=== PATIENT | female | born 1990 | race African-American/Black ===

== ENCOUNTER 2018-02-16 08:30 | Emergency (ER) | payer OTHER, SELFPAY | END 2018-02-16 08:53 | disposition home or self-care (01) | LOC: ERS 08:30 | DX: J02.0 Streptococcal pharyngitis (principal); F32.9 Major depressive disorder, single episode, unspecified; F17.210 Nicotine dependence, cigarettes, uncomplicated | CPT/HCPCS: 99283 ==

== ENCOUNTER 2018-08-28 05:55 | Emergency (ER) | payer SELFPAY | END 2018-08-28 06:18 | disposition home or self-care (01) | LOC: ERS 05:55 | DX: S46.811A Strain of other muscles, fascia and tendons at shoulder and upper arm level, right arm, initial encounter (principal); H66.91 Otitis media, unspecified, right ear; F32.9 Major depressive disorder, single episode, unspecified; F17.210 Nicotine dependence, cigarettes, uncomplicated; X58.XXXA Exposure to other specified factors, initial encounter | CPT/HCPCS: 99283 ==

== ENCOUNTER 2019-01-28 05:12 | Emergency (ER) | payer SELFPAY ==
--- NOTE | 2019-01-28 08:45 | RAD ---
CHEST TWO VIEWS: History: History of flu-like symptoms, cough. Comparison: None. FINDINGS: Lungs are clear. Heart size is normal. No acute osseous abnormality is evident. IMPRESSION: No acute cardiopulmonary abnormality. POS: BH
== END 2019-01-28 06:50 | disposition home or self-care (01) ==
LOC: ERS 05:12
DX: J18.9 Pneumonia, unspecified organism (principal); F17.210 Nicotine dependence, cigarettes, uncomplicated; F32.9 Major depressive disorder, single episode, unspecified
CPT/HCPCS: 71046

== ENCOUNTER 2019-02-15 12:00 | Emergency (ER) | payer SELFPAY ==
--- NOTE | 2019-02-15 12:26 | RAD ---
RADIOGRAPH CHEST 2 VIEWS: DATE: 02/15/2019 HISTORY: 28-year-old female with cough, chest congestion, and chest pain. History of treated pneumonia. FINDINGS: The lungs are clear. The cardiomediastinal silhouette and hilar shadows appear normal. There is no pl eural effusion or pneumothorax. No osseous abnormality is identified. IMPRESSION: Normal
[2019-02-15] MEDS ORDERED: Albuterol Sulfate 2.5 mg/3 ml Neb ONE (12:41)
[2019-02-15] MEDS ORDERED: predniSONE 20 MG TAB ONE (12:42)
== END 2019-02-15 15:39 | disposition home or self-care (01) ==
LOC: ERS 12:00
DX: J20.9 Acute bronchitis, unspecified (principal); F32.9 Major depressive disorder, single episode, unspecified; F17.210 Nicotine dependence, cigarettes, uncomplicated; Z79.51 Long term (current) use of inhaled steroids
CPT/HCPCS: 71046; 94644; J7512; J7611; J7620

== ENCOUNTER 2020-08-24 12:48 | Emergency (ER) | payer SELFPAY ==
[2020-08-24 21:31] LABS: SARS-CoV-2 MS2 Positive; SARS-CoV-2 N Gene Positive; SARS-CoV-2 S Gene Positive; SARS-CoV-2 by NAA DETECTED (NotDetected); SARS-CoV-2 orf1ab Positive
== END 2020-08-24 13:20 | disposition home or self-care (01) ==
LOC: ERS 12:48
DX: U07.1 COVID-19 (principal); F32.9 Major depressive disorder, single episode, unspecified; F17.210 Nicotine dependence, cigarettes, uncomplicated
CPT/HCPCS: 87635; 99283; U0003

== ENCOUNTER 2020-11-08 03:37 | Observation (INO) | payer SELFPAY ==
[2020-11-08 04:03] LABS: #Basophils 0.2 thou/uL (0.0-0.2); #Eosinphils 0.2 thou/uL (0.0-0.7); #Lymphocytes 2.4 thou/uL (1.20-3.40); #Monocytes 0.6 thou/uL (0.11-0.59); #Neutrophils 6.5 thou/uL (1.40-6.50); %Basophils 1.6 % (0.0-1.0); %Eosinophils 1.5 % (0.0-10.0); %Lymphocytes 24.2 % (21.0-51.0); %Neutrophils 66.7 % (42.0-75.0); Hemoglobin 12.5 g/dL (12.0-16.0); Mean Corpuscular HGB CONC 31.8 g/dL (32.0-36.0); Mean Corpuscular Hemoglobin 25.1 pg (27.0-31.0); Mean Platelet Volume 8.7 fL (7.4-10.4); Platelet Count 284 thou/uL (130-400); RBC Distribution Width 13.5 % (11.5-14.5); Red Blood Cell (RBC) Count 4.97 mill/uL (4.20-5.40); White Blood Cell (WBC) Count 9.8 thou/uL (4.8-10.8)
[2020-11-08 04:25] LABS: ALT (SGPT) 27 U/L (8-55); AST (SGOT) 18 U/L (5-34); Albumin 4.2 g/dL (3.5-5.0); Alkaline Phosphatase 77 U/L (40-110); Anion Gap 14 mmol/L (10-20); BUN (Urea Nitrogen) 14 mg/dL (7.0-18.7); Bilirubin, Total 0.3 mg/dL (0.2-1.2); Calc. Creatinine Clearance 0 mL/min (70-130); Carbon Dioxide 23 mmol/L (22-29); Chloride 107 mmol/L (98-107); Globulin 3.1 g/dL (2.4-3.5); Glucose 129 mg/dL (70-105); Lipase 11 U/L (8-78); Potassium 3.3 mmol/L (3.5-5.1); Protein, Total 7.3 g/dL (6.0-8.3); Sodium 141 mmol/L (136-145)
[2020-11-08] MEDS ORDERED: Ketorolac Tromethamine 30 MG/ML VIAL ONE (04:27)
[2020-11-08] MEDS ORDERED: Ondansetron PF 4 MG/2 ML Vial ONE ×2 (04:27→04:54)
[2020-11-08 04:55] LABS: Pregnancy Test - Urine (BHCG) Negative (Negative)
[2020-11-08 04:56] LABS: Pregu Control Background? CLEAR/WHITE (CLR/WHITE); Pregu Control Bar Appear? YES (CONTROL BAR)
[2020-11-08 04:57] LABS: Specific Gravity 1.024 (1.002-1.036)
[2020-11-08 05:13] LABS: Bilirubin Negative (Negative); Blood, Urine Trace (Negative); Clarity Clear (Clear); Glucose, Urine (Dipstick) Normal (Negative); Ketone, Urine 20 mg/dL (Negative); Leukocyte 25 Leu/uL (Negative); Nitrite Negative (Negative); Protein, Urine (Dipstick) 30 mg/dL (Neg-Trace); Specific Gravity, Urine 1.026 (1.002-1.036); Urobilinogen Normal mg/dL (Less than 2); WBC/HPF 0-3 HPF (0-3); pH, Urine 8.5 (5.0-9.0)
[2020-11-08] MEDS ORDERED: Metoclopramide HCl 10 MG/2 ML VIAL ONE (05:16)
[2020-11-08 05:18] LABS: Bacteria/HPF 1+ HPF (None Seen)
[2020-11-08] MEDS ORDERED: Haloperidol Lactate 5 MG/ML VIAL SLOW IVP SCH (05:30)
[2020-11-08] MEDS ORDERED: Lidocaine Viscous Sol 2% 15 ml UD Cup ONE (06:07)
[2020-11-08] MEDS ORDERED: Mag-Al 1200 mg/1200 mg/30 ML UDCUP ONE (06:07)
[2020-11-08] MEDS ORDERED: Promethazine HCl 25 MG/ML VIAL ONE (06:37)
[2020-11-08 07:24] LABS: Anion Gap 15 mmol/L (10-20); BUN (Urea Nitrogen) 12 mg/dL (7.0-18.7); Calc. Creatinine Clearance 0 mL/min (70-130); Calcium 8.5 mg/dL (7.8-10.44); Carbon Dioxide 22 mmol/L (22-29); Chloride 108 mmol/L (98-107); Glucose 123 mg/dL (70-105); Potassium 3.5 mmol/L (3.5-5.1); Sodium 141 mmol/L (136-145)
[2020-11-08] MEDS ORDERED: cefTRIAXone\\ROCEPHIN 1 GM VIAL ONE (07:31)
[2020-11-08] MEDS ORDERED: Ondansetron ODT 4 MG TAB PO PRN (07:43)
[2020-11-08] MEDS ORDERED: Acetaminophen 325 MG TAB PO PRN (07:43)
[2020-11-08] MEDS ORDERED: Metoclopramide HCl 10 MG/2 ML VIAL IVP PRN (07:45)
--- NOTE | 2020-11-08 07:59 | PDOC.HHP ---
Hospitalist JOANNA Nausea vomitting History of Present Illness: Ms. Louie is a 30-year-old female with past medical history of tobacco use, anxiety and depression, hypertension, who presents emergency room for intractable nausea and vomiting. Patient reports that in the middle the night she awoke with extreme nausea and vomiting. Refers she is vomited and uncountable number of times but greater than 10 since this morning. She is bringing up yellow bile. Vomit is nonbloody. No diarrhea, melena or hematochezia. She denies abdominal pain but does feel sore from retching. Denies pelvic pain, reports no changes in her menstrual cycle. Is on the Depo- Provera shot for contraception. She is unable to tolerate anything p.o. she reports only occasional alcohol use less than once per month and denies marijuana use but does endorse tobacco use. No history of diabetes or pancreatitis. In emergency room initial vital signs 124/86, 61, 22, 99% on room air, 97.4. Lipase 11, BUN/CR 14/1.05, sodium 141, potassium 3.3, glucose 129. H/H 12.5/39.3, WBC 9.8, platelets 284. Patient received multiple antinausea medications in the emergency room including Haldol, promethazine, GI cocktail, metoclopramide, Zofran as well as 1 L normal saline. Her UA was leukocyte esterase positive, but did have contaminants. She did receive 1 dose of ceftriaxone. Patient currently denies any urinary symptoms. Allergies/Adverse Reactions: Allergy/AdvReac Type Severity Reaction Status Date / Time tramadol Allergy Verified 12/21/19 17:41 Home Medications: Medication Instructions Recorded Confirmed Type Ibuprofen [Advil] 2 tab PO PRN PRN 04/30/17 04/30/17 History Amlodipine [Norvasc] 5 mg PO BID #60 tab 05/02/17 Rx Past History: PMHx: Hypertension Anxiety and depression Tobacco use PSHx: C-sections FHx: Denies family history of diabetes, cancer or heart disease Social: Endorses occasional alcohol use less than once per month, tobacco use less than half pack per day, no drug use. Hospitalist JOANNA ROS Constitutional: reports: malaise. denies: fever, chills, sweats, weakness, other Eyes: denies: pain, vision change, conjunctivae inflammation, eyelid inflammation, redness, other ENT: denies: ear pain, ear discharge, nose pain, nose discharge, nose congestion, mouth pain, mouth swelling, throat pain, throat swelling, other Respiratory: denies: cough, dry, shortness of breath, hemoptysis, SOB with excertion, pleuritic pain, sputum, wheezing, other Cardiovascular: denies: chest pain, palpitations, orthopnea, paroxysmal noc. dyspnea, edema, light headedness, other Gastrointestinal: reports: nausea, vomiting. denies: abdominal pain, diarrhea, constipation, melena, hematochezia, other Genitourinary: denies: dysuria, frequency, incontinence, hematuria, retention, other Musculoskeletal: denies: neck pain, shoulder pain, arm pain, back pain, hand pain, leg pain, foot pain, other Skin: denies: rash, lesions, you, bruising, other Neurological: denies: weakness, numbness, incoordination, change in speech, confusion, seizures, other Hospitalist Exam General Appearance: NAD, awake alert Eye: PERRL, anicteric sclera ENT: normocephalic atraumatic, no oropharyngeal lesions, moist mucosa Neck: supple, symmetric, no JVD, no thyromegaly, no lymphadenopathy, no carotid bruit Heart: RRR, no murmur, no gallops, no rubs, normal peripheral pulses Respiratory: CTAB, no wheezes, no rales, no ronchi, normal chest expansion, no tachypnea, normal percussion Gastrointestinal: soft, non-tender, non-distended, normal bowel sounds, no palpable masses, no hepatomegaly, no splenomegaly, no bruit Extremities: no cyanosis, no clubbing, no edema Skin: normal turgor, no lesions, no rashes Neurological: cranial nerve grossly intact, normal sensation to touch, no weakness, no focal deficits, no new deficit Musculoskeletal: normal tone, normal strength, no muscle wasting Psychiatric: normal affect, normal behavior, A&O x 3 Hospitalist Results Result Diagrams: 11/08/20 03:55 11/08/20 06:59 Lab results: Laboratory Last Values WBC 9.8 thou/uL (4.8-10.8) 11/08/20 03:55 RBC 4.97 mill/uL (4.20-5.40) 11/08/20 03:55 Hgb 12.5 g/dL (12.0-16.0) 11/08/20 03:55 Hct 39.3 % (36.0-47.0) 11/08/20 03:55 MCV 79.0 fL (78.0-98.0) 11/08/20 03:55 MCH 25.1 pg (27.0-31.0) L 11/08/20 03:55 MCHC 31.8 g/dL (32.0-36.0) L 11/08/20 03:55 RDW 13.5 % (11.5-14.5) 11/08/20 03:55 Plt Count 284 thou/uL (130-400) 11/08/20 03:55 MPV 8.7 fL (7.4-10.4) 11/08/20 03:55 Neutrophils % 66.7 % (42.0-75.0) 11/08/20 03:55 Lymphocytes % 24.2 % (21.0-51.0) 11/08/20 03:55 Monocytes % 6.0 % (0.0-10.0) 11/08/20 03:55 Eosinophils % 1.5 % (0.0-10.0) 11/08/20 03:55 Basophils % 1.6 % (0.0-1.0) H 11/08/20 03:55 Neutrophils # 6.5 thou/uL (1.40-6.50) 11/08/20 03:55 Lymphocytes # 2.4 thou/uL (1.20-3.40) 11/08/20 03:55 Monocytes # 0.6 thou/uL (0.11-0.59) H 11/08/20 03:55 Eosinophils # 0.2 thou/uL (0.0-0.7) 11/08/20 03:55 Basophils # 0.2 thou/uL (0.0-0.2) 11/08/20 03:55 Sodium 141 mmol/L (136-145) 11/08/20 06:59 Potassium 3.5 mmol/L (3.5-5.1) 11/08/20 06:59 Chloride 108 mmol/L (98-107) H 11/08/20 06:59 Carbon Dioxide 22 mmol/L (22-29) 11/08/20 06:59 Anion Gap 15 mmol/L (10-20) 11/08/20 06:59 BUN 12 mg/dL (7.0-18.7) 11/08/20 06:59 Creatinine 0.85 mg/dL (0.6-1.1) 11/08/20 06:59 Estimated GFR (MDRD) Greater than 90 11/08/20 06:59 Glucose 123 mg/dL (70-105) H 11/08/20 06:59 Calcium 8.5 mg/dL (7.8-10.44) 11/08/20 06:59 Total Bilirubin 0.3 mg/dL (0.2-1.2) 11/08/20 03:55 AST 18 U/L (5-34) 11/08/20 03:55 ALT 27 U/L (8-55) 11/08/20 03:55 Alkaline Phosphatase 77 U/L (40-110) 11/08/20 03:55 Serum Total Protein 7.3 g/dL (6.0-8.3) 11/08/20 03:55 Albumin 4.2 g/dL (3.5-5.0) 11/08/20 03:55 Globulin 3.1 g/dL (2.4-3.5) 11/08/20 03:55 Albumin/Globulin Ratio 1.4 g/dL (1.2-2.2) 11/08/20 03:55 Lipase 11 U/L (8-78) 11/08/20 03:55 Urine Color Light-Yellow (Yellow) 11/08/20 04:37 Urine Clarity Clear (Clear) 11/08/20 04:37 Urine pH 8.5 (5.0-9.0) 11/08/20 04:37 Ur Specific [place] 1.024 (1.002-1.036) 11/08/20 04:37 Ur Specific [place] 1.026 (1.002-1.036) 11/08/20 04:37 Urine Protein 30 mg/dL (Neg-Trace) A 11/08/20 04:37 Urine Glucose (UA) Normal mg/dL (Negative) 11/08/20 04:37 Urine Ketones 20 mg/dL (Negative) A 11/08/20 04:37 Urine Blood Trace (Negative) A 11/08/20 04:37 Urine Nitrite Negative (Negative) 11/08/20 04:37 Urine Bilirubin Negative (Negative) 11/08/20 04:37 Urine Urobilinogen Normal mg/dL (Less than 2) 11/08/20 04:37 Ur Leukocyte Esterase 25 Jaida/uL (Negative) A 11/08/20 04:37 Urine RBC 7-10 HPF (0-3) A 11/08/20 04:37 Urine WBC 0-3 HPF (0-3) 11/08/20 04:37 Ur Squamous Epith Cells 4-6 HPF (0-3) A 11/08/20 04:37 Urine Bacteria 1+ HPF (None Seen) A 11/08/20 04:37 Urine Test Negative (Negative) 11/08/20 04:37 Hospitalist H&P A/P Plan: Intractable nausea and vomiting 30-year-old female with minimal past medical history presents for intractable nausea and vomiting which started overnight. Patient is unable to tolerate anything p.o and has nonbloody, but bilious vomiting. No diarrhea melena or hematochezia. AST/ALT 18/27, alk phos 77. Lipase 11. Beta hCG negative. Patient without abdominal pain. Abdominal exam nonperitoneal soft nontender. Basic laboratory studies mostly normal aside from a low potassium 3.3. Patient received multiple antiemetics in the emergency room including Haldol, promethazine, metoclopramide and Zofran. Patient denies alcohol or marijuana use. No personal or family history of diabetes. Suspect likely secondary to gastroenteritis. Will admit patient for observation and see if she is able to tolerate p.o. Plan IV fluids Clear liquids advance diet as tolerated IV antiemetics, Zofran, metoclopramide Serial abdominal exams Hypokalemia Potassium 3.3. Secondary to GI losses. Will replete and continue to monitor. Plan Replete and continue to monitor Hypertension Patient with history of hypertension, reports she used to take medication for this but no longer does. Records show patient was formally on amlodipine. Patient mildly hypertensive in emergency room. If patient remains hypertensive will restart medication. Positive urine analysis UA in emergency room positive for leukocyte esterase, few bacteria, with squamous epithelial cells. Sample likely contaminated. Patient does not have any urinary symptoms. Patient did receive dose of ceftriaxone in the emergency room, however I will hold antibiotics and not treat asymptomatic bacteriuria. We will continue antibiotics if patient Steve any symptoms. Anxiety and depression History of anxiety and depression on paroxetine. We will continue home dose of p.o. patient is able to tolerate p.o. DVT prophylaxisSCDs Full code Case discussed with attending physician, Dr. Garcia.
[2020-11-08] MEDS ORDERED: Promethazine HCl 25 MG/ML VIAL SLOW IVP PRN (08:01)
[2020-11-08 10:10] VITALS: BMI 31.5
[2020-11-08] MEDS: Pantoprazole 40 MG VIAL IVP SCH ×2 (11:38→19:49)
[2020-11-08 12:33] LABS: Hemoglobin A1c 5.2 % (4.0-6.0)
[2020-11-08] MEDS: Potassium Chloride 30 MEQ in Sodium Chloride 0.9% 1,000 ML IV SCH ×2 (12:59→22:45)
[2020-11-08] MEDS: Ondansetron PF 4 MG/2 ML Vial IVP PRN (13:01)
[2020-11-08 16:22] LABS: Amphetamine Not Detected (NotDetected); Barbiturates Screen Not Detected (NotDetected); Benzodiazepine Screen Detected (NotDetected); Cocaine Metabolite Screen Not Detected (NotDetected); Medtox Control Line Valid? VALID (VALID); Medtox Reader # READER 4; Methadone Not Detected (NotDetected); Methamphetamine Not Detected (NotDetected); Opiate Screen Not Detected (NotDetected); Oxycodone Screen Not Detected (NotDetected); Phencyclidine (PCP) Not Detected (NotDetected); THC/Cannabinoid Screen Detected (NotDetected); Tricyclic Screen Not Detected (NotDetected)
[2020-11-08 20:41] LABS: SARS-CoV-2 PCR by NAA DETECTED (NotDetected)
[2020-11-09] MEDS: Ondansetron PF 4 MG/2 ML Vial IVP PRN ×2 (02:43→08:51)
[2020-11-09] MEDS: Promethazine HCl 25 MG/ML VIAL SLOW IVP PRN ×2 (04:27→11:09)
[2020-11-09 06:15] LABS: #Basophils 0.1 thou/uL (0.0-0.2); #Lymphocytes 1.6 thou/uL (1.20-3.40); #Monocytes 0.7 thou/uL (0.11-0.59); #Neutrophils 8.2 thou/uL (1.40-6.50); %Basophils 0.6 % (0.0-1.0); %Eosinophils 0.2 % (0.0-10.0); %Lymphocytes 15.1 % (21.0-51.0); %Monocytes 6.5 % (0.0-10.0); %Neutrophils 77.6 % (42.0-75.0); Hemoglobin 12.2 g/dL (12.0-16.0); Mean Corpuscular HGB CONC 30.5 g/dL (32.0-36.0); Mean Corpuscular Hemoglobin 24.2 pg (27.0-31.0); Mean Corpuscular Volume 79.1 fL (78.0-98.0); Mean Platelet Volume 9.1 fL (7.4-10.4); Platelet Count 258 thou/uL (130-400); RBC Distribution Width 13.6 % (11.5-14.5); Red Blood Cell (RBC) Count 5.05 mill/uL (4.20-5.40); White Blood Cell (WBC) Count 10.6 thou/uL (4.8-10.8)
[2020-11-09 06:32] LABS: Anion Gap 16 mmol/L (10-20); BUN (Urea Nitrogen) 11 mg/dL (7.0-18.7); Calc. Creatinine Clearance 145 mL/min (70-130); Calcium 8.8 mg/dL (7.8-10.44); Carbon Dioxide 20 mmol/L (22-29); Chloride 108 mmol/L (98-107); Glucose 103 mg/dL (70-105); Potassium 4.1 mmol/L (3.5-5.1); Sodium 140 mmol/L (136-145)
[2020-11-09] MEDS: Pantoprazole 40 MG VIAL IVP SCH ×2 (08:50→20:26)
[2020-11-09] MEDS: PARoxetine 20 MG TAB PO SCH (09:15)
[2020-11-09] MEDS: Potassium Chloride 30 MEQ in Sodium Chloride 0.9% 1,000 ML IV SCH (11:10)
--- NOTE | 2020-11-09 14:49 | PDOC.HOSPP ---
- Subjective Encounter Date: 11/09/20 Encounter Time: 10:10 Subjective: Patient is quite nauseated she still have ongoing emesis. Drug screen came back positive for marijuana. Patient denies use of that. - Objective Vital Signs & Weight: Vital Signs (12 hours) Temp Pulse Resp BP Pulse Ox 11/09/20 11:03 98.6 F 55 L 16 106/69 97 11/09/20 07:09 99.0 F 72 16 155/90 H 96 Weight Weight 195 lb 5.273 oz Result Diagrams: 11/09/20 05:42 11/09/20 05:42 Hospitalist ROS - Medication Medications: Active Medications Generic Name Dose Route Start Last Admin Trade Name Freq PRN Reason Stop Dose Admin Potassium Chloride 30 meq/ 1,015 mls @ 75 mls/hr 11/08/20 11:45 11/09/20 11:10 Sodium Chloride IV 1,015 mls .[id number] CAMELIA Administration Metoclopramide HCl 10 mg 11/08/20 07:45 11/08/20 14:48 Metoclopramide Hcl 10 Mg/2 Ml Vial IVP 10 mg Q6H PRN Administration Nausea/Vomiting Ondansetron HCl 4 mg 11/08/20 07:43 11/09/20 08:51 Ondansetron Pf 4 Mg/2 Ml Vial IVP 4 mg Q6H PRN Administration Nausea/Vomiting Pantoprazole Sodium 40 mg 11/08/20 09:00 11/09/20 08:50 Pantoprazole 40 Mg Vial IVP 40 mg Q12HR CAMELIA Administration Paroxetine HCl 20 mg 11/09/20 09:00 11/09/20 09:15 Paroxetine 20 Mg Tab PO Not Given DAILY CAMELIA Promethazine HCl 25 mg 11/09/20 04:18 11/09/20 11:09 Promethazine Hcl 25 Mg/Ml Vial SLOW IVP 25 mg Q2H PRN Administration Nausea Hospitalist Exam Vitals: Vital Signs (12 hours) Temp Pulse Resp BP Pulse Ox 11/09/20 11:03 98.6 F 55 L 16 106/69 97 11/09/20 07:09 99.0 F 72 16 155/90 H 96 Weight Weight 195 lb 5.273 oz General Appearance: NAD, awake alert Eye: PERRL ENT: normocephalic atraumatic Neck: supple Heart: RRR, normal peripheral pulses Respiratory: CTAB, normal chest expansion Neurological: no focal deficits Psychiatric: A&O x 3 Hosp A/P - Plan 30-year-old female with minimal past medical history presents for intractable nausea and vomiting which started overnight. Patient is unable to tolerate anything p.o and has nonbloody, but bilious vomiting. No diarrhea melena or hematochezia. AST/ALT 18/27, alk phos 77. Lipase 11. Beta hCG negative. Possibly marijuana induced emesis IV fluids Clear liquids advance diet as tolerated IV antiemetics, Zofran, metoclopramide Serial abdominal exams COVID-19 Pneumonia -Maybe this also could have contributed for symptoms. -Start her on a Decadron and if she can tolerate we will also add vitamin supplements. Hypokalemia Metabolic acidosis Potassium 3.3. Secondary to GI losses. -Improved Hypertension - on amlodipine. Asymptomatic bacteriuria -No antibiotic Anxiety and depression - on paroxetine. DVT prophylaxisSCDs Full code
[2020-11-10] MEDS ORDERED: Melatonin 3 MG TAB PO SCH (00:45)
[2020-11-10] MEDS: Potassium Chloride 30 MEQ in Sodium Chloride 0.9% 1,000 ML IV SCH (01:23)
[2020-11-10 05:54] LABS: #Basophils 0.1 thou/uL (0.0-0.2); #Lymphocytes 2.5 thou/uL (1.20-3.40); #Monocytes 0.5 thou/uL (0.11-0.59); #Neutrophils 2.3 thou/uL (1.40-6.50); %Basophils 1.2 % (0.0-1.0); %Eosinophils 0.7 % (0.0-10.0); %Lymphocytes 46.2 % (21.0-51.0); %Monocytes 9.4 % (0.0-10.0); %Neutrophils 42.5 % (42.0-75.0); Hemoglobin 11.2 g/dL (12.0-16.0); Mean Corpuscular HGB CONC 30.8 g/dL (32.0-36.0); Mean Corpuscular Hemoglobin 24.3 pg (27.0-31.0); Mean Corpuscular Volume 79.1 fL (78.0-98.0); Platelet Count 232 thou/uL (130-400); RBC Distribution Width 13.5 % (11.5-14.5); Red Blood Cell (RBC) Count 4.62 mill/uL (4.20-5.40); White Blood Cell (WBC) Count 5.3 thou/uL (4.8-10.8)
[2020-11-10 06:12] LABS: Anion Gap 12 mmol/L (10-20); BUN (Urea Nitrogen) 11 mg/dL (7.0-18.7); Calc. Creatinine Clearance 125 mL/min (70-130); Calcium 8.3 mg/dL (7.8-10.44); Carbon Dioxide 22 mmol/L (22-29); Chloride 108 mmol/L (98-107); Glucose 89 mg/dL (70-105); Potassium 4.1 mmol/L (3.5-5.1); Sodium 138 mmol/L (136-145)
[2020-11-10] MEDS: Pantoprazole 40 MG VIAL IVP SCH (07:57)
[2020-11-10] MEDS: PARoxetine 20 MG TAB PO SCH ×2 (08:41→08:46)
[2020-11-10] MEDS ORDERED: Ascorbic Acid 500 mg Chewable Tablet PO SCH (09:00)
[2020-11-10] MEDS ORDERED: Dexamethasone 4 mg/ml Vial SLOW IVP SCH (09:00)
[2020-11-10] MEDS ORDERED: Zinc Sulfate 220 MG CAP PO SCH (09:00)
[2020-11-10] MEDS ORDERED: Cholecalciferol (Vitamin D3) 400 UNITS TAB PO SCH (09:00)
[2020-11-10 11:03] VITALS: TEMP 98.2
--- NOTE | 2020-11-10 13:27 | PDOC.DS.DS ---
Provider Date of Admission: 11/08/20 06:46 Admitting Provider: Ángela Abebe MD Primary Care Physician: Daniel Nguyen MD Course Hospital Course: 30-year-old female with minimal past medical history presents for intractable nausea and vomiting which started overnight. Patient is unable to tolerate anything p.o and has nonbloody, but bilious vomiting. No diarrhea melena or hematochezia. AST/ALT 18/27, alk phos 77. Lipase 11. Beta hCG negative. Possibly marijuana induced emesis -Improved with supportive measures and stable to be discharged home today COVID-19 Pneumonia -Maybe this also could have contributed for symptoms. -Sent home with the Decadron vitamin supplements Hypokalemia Metabolic acidosis Potassium 3.3. Secondary to GI losses. -Improved Hypertension - on amlodipine. Asymptomatic bacteriuria -No antibiotic Anxiety and depression - on paroxetine. To be discharged home today. Discharge time over 30 minutes. Resuscitation Status: 11/08/20 07:43 Resuscitation Status Routine Co-Sign Provider: Resuscitation Status: FULL: Full Resuscitation Lab Results: 11/10/20 05:27 11/10/20 05:27 Abnormal Lab Results - Last 48 hrs 11/08/20 04:37: U Benzodiazepines Scrn Detected H, U Cannabinoids Screen Detected H 11/08/20 11:30: SARS-CoV-2 RNA (MARIVEL) DETECTED A* 11/09/20 05:42: Chloride 108 H, Carbon Dioxide 20 L 11/09/20 05:42: MCH 24.2 L, MCHC 30.5 L, Neutrophils % 77.6 H, Lymphocytes % 15.1 L, Neutrophils # 8.2 H, Monocytes # 0.7 H 11/10/20 05:27: Chloride 108 H 11/10/20 05:27: Hgb 11.2 L, MCH 24.3 L, MCHC 30.8 L, Basophils % 1.2 H Vitals: Vital Signs (12 hours) Temp Pulse Resp BP Pulse Ox 11/10/20 11:03 98.2 F 52 L 16 125/77 97 11/10/20 07:16 98.3 F 51 L 16 138/88 98 11/10/20 04:26 98.1 F 60 16 128/79 98 Weight Weight 195 lb 5.273 oz Physical Exam: The patient was seen and examined on the day of discharge. Patient seen this morning. She tolerated her regular diet. No emesis further she is doing well ready to be discharged home today. Plan Home Medications: Medication Instructions Recorded Confirmed Type PARoxetine HCl [Paxil] 1 tab PO DAILY 11/08/20 11/08/20 History Allergies: tramadol Allergy (Verified 12/21/19 17:41) Nourishment:: Regular Diet Referrals: Daniel Nguyen MD [Primary Care Provider] - Disposition: HOME Quality CORE MEASURES:: N/A
[2020-11-10 14:43] VITALS: BP 137/84
== END 2020-11-10 14:45 | disposition home or self-care (01) ==
LOC: ERS 03:37 → INTOOBSV 06:46 → T4-A 06:46
PROVIDERS: ADMIT Internal Medicine; ATTEND Internal Medicine
DX: U07.1 COVID-19 (principal); J12.82 Pneumonia due to coronavirus disease 2019; E87.2 Acidosis; E87.6 Hypokalemia; I10 Essential (primary) hypertension; F41.9 Anxiety disorder, unspecified; F32.9 Major depressive disorder, single episode, unspecified; F17.210 Nicotine dependence, cigarettes, uncomplicated; R82.71 Bacteriuria; Z79.899 Other long term (current) drug therapy; Z88.5 Allergy status to narcotic agent
CPT/HCPCS: 36415; 80048; 80053; 80306; 81003; 81015; 81025; 83036; 83690; 83735; 85025; 87635; 96361; 96365; 96366; 96367; 96375; 96376; C9113; G0378; J0696; J1100; J1630; J1885; J2405; J2550; J2765; J3480; J7050; U0003; U0005

== ENCOUNTER 2021-08-05 16:49 | Emergency (ER) | payer SELFPAY ==
[~2021-08-05 16:49] MED LIST: Iopamidol-370 76% 500 ML 1 ML ONE
[2021-08-05 17:31] LABS: #Basophils 0.1 thou/uL (0.0-0.2); #Lymphocytes 1.1 thou/uL (1.20-3.40); #Monocytes 0.5 thou/uL (0.11-0.59); #Neutrophils 10.3 thou/uL (1.40-6.50); %Basophils 0.7 % (0.0-1.0); %Eosinophils 0.2 % (0.0-10.0); %Lymphocytes 9.3 % (21.0-51.0); %Monocytes 4.4 % (0.0-10.0); %Neutrophils 85.5 % (42.0-75.0); Hemoglobin 13.6 g/dL (12.0-16.0); Mean Corpuscular HGB CONC 32.8 g/dL (32.0-36.0); Mean Corpuscular Hemoglobin 25.9 pg (27.0-31.0); Mean Platelet Volume 8.4 fL (7.4-10.4); Platelet Count 261 thou/uL (130-400); RBC Distribution Width 12.1 % (11.5-14.5); Red Blood Cell (RBC) Count 5.26 mill/uL (4.20-5.40); White Blood Cell (WBC) Count 12.1 thou/uL (4.8-10.8)
[2021-08-05 17:52] LABS: ALT (SGPT) 24 U/L (8-55); AST (SGOT) 16 U/L (5-34); Albumin 4.5 g/dL (3.5-5.0); Alkaline Phosphatase 69 U/L (40-110); Anion Gap 15 mmol/L (10-20); BUN (Urea Nitrogen) 11 mg/dL (7.0-18.7); Bilirubin, Total 0.7 mg/dL (0.2-1.2); Calc. Creatinine Clearance 0 mL/min (70-130); Calcium 9.9 mg/dL (7.8-10.44); Carbon Dioxide 22 mmol/L (22-29); Chloride 109 mmol/L (98-107); Glucose 140 mg/dL (70-105); Potassium 3.4 mmol/L (3.5-5.1); Protein, Total 7.5 g/dL (6.0-8.3); Sodium 143 mmol/L (136-145)
[2021-08-05] MEDS ORDERED: Ondansetron PF 4 MG/2 ML Vial ONE (17:53)
[2021-08-05 18:20] LABS: BHCG - Serum Negative (NEGATIVE); Pregs Control Background? CLEAR/WHITE (CLR/WHITE); Pregs Control Bar Appear? YES (CONTROL BAR)
[2021-08-05] MEDS ORDERED: Haloperidol Lactate 5 MG/ML VIAL ONE (19:48)
[2021-08-05 23:52] LABS: SARS-CoV-2 PCR by NAA Not Detected (NotDetected)
== END 2021-08-05 20:23 | disposition home or self-care (01) ==
LOC: ERS 16:49
DX: R11.10 Vomiting, unspecified (principal); R10.84 Generalized abdominal pain; F17.210 Nicotine dependence, cigarettes, uncomplicated; Z20.822 Contact with and (suspected) exposure to COVID-19
CPT/HCPCS: 36415; 74177; 80053; 83690; 84703; 85025; 96374; 96375; J1630; J2405; Q9967; U0003; U0005

== ENCOUNTER 2023-02-01 03:23 | Emergency (ER) | payer SELFPAY ==
[2023-02-01 04:16] LABS: #Eosinphils 0.3 thou/uL (0.0-0.7); #Lymphocytes 2.3 thou/uL (1.20-3.40); #Monocytes 0.6 thou/uL (0.11-0.59); #Neutrophils 3.8 thou/uL (1.40-6.50); %Basophils 0.7 % (0.0-1.0); %Eosinophils 3.6 % (0.0-10.0); %Lymphocytes 33.3 % (21.0-51.0); %Monocytes 8.2 % (0.0-10.0); %Neutrophils 54.3 % (42.0-75.0); Hemoglobin 13.3 g/dL (12.0-16.0); Mean Corpuscular Hemoglobin 26.4 pg (27.0-31.0); Mean Corpuscular Volume 80.1 fl (78.0-98.0); Mean Platelet Volume 8.2 fL (7.4-10.4); Platelet Count 285 10x3/uL (130-400); RBC Distribution Width 12.7 % (11.5-14.5); Red Blood Cell (RBC) Count 5.04 mill/uL (4.20-5.40)
[2023-02-01 04:36] LABS: ALT (SGPT) 35 U/L (8-55); AST (SGOT) 22 U/L (5-34); Alkaline Phosphatase 74 U/L (40-110); Anion Gap 13 mmol/L (10-20); BUN (Urea Nitrogen) 8 mg/dL (7.0-18.7); Bilirubin, Total 0.2 mg/dL (0.2-1.2); Calc. Creatinine Clearance 0 mL/min (70-130); Carbon Dioxide 23 mmol/L (22-29); Chloride 108 mmol/L (98-107); Estimated GFR 80; Globulin 3.1 g/dL (2.4-3.5); Glucose 98 mg/dL (70-105); Protein, Total 7.1 g/dL (6.0-8.3); Sodium 140 mmol/L (136-145)
== END 2023-02-01 05:35 | disposition home or self-care (01) ==
LOC: ERS 03:23
DX: J20.9 Acute bronchitis, unspecified (principal); F17.210 Nicotine dependence, cigarettes, uncomplicated
CPT/HCPCS: 36415; 71045; 80053; 84484; 85025; 93005